=== PATIENT | female | born 1990 | race American Indian/Alaskan Native ===

== ENCOUNTER 2020-04-24 07:07 | Emergency (ER) | payer OTHER ==
[2020-04-24 07:36] VITALS: BP 107/59
--- NOTE | 2020-04-24 07:48 | Emergency Department Report ---
Chief Complaint: Urogenital-Female Stated Complaint: DISCHARGE W/BLOOD - HPI History of Present Illness: 29-year-old -J[place] female presents to the emergency room complaining of vaginal discharge that she has had for a week. Patient states that she tried [id number] Monistat because it was itching the itching has improved but now has a discharge with a foul odor. Patient denies any abdominal pain no nausea no vomiting no diarrhea. She denies any vaginal pain no dysuria. Last menstrual period was 04/18/2020. She is 4 para to 4. Last delivery was in October 2019. - Exam Vital Signs: Vital Signs 04/24/20 07:33 Temperature 98.3 F Pulse Rate 68 Respiratory 18 Rate Blood Pressure 107/59 O2 Sat by Pulse 100 Oximetry Physical Exam: Alert and oriented x3 no acute distress nontoxic in appearance Nonlabored breathing no accessory muscles use Abdomen soft nontender nondistended Ambulatory without difficulties MSE screening note: Focused history and physical exam performed. Due to findings the following was ordered: 29-year-old -J[place] female presents to the emergency room complaining of vaginal discharge that she has had for a week. Patient states that she tried [id number]-[id number] Monistat because it was itching the itching has improved but now has a discharge with a foul odor. Patient denies any abdominal pain no nausea no vomiting no diarrhea. She denies any vaginal pain no dysuria. Last menstrual period was 04/18/2020. She is 4 para to 4. Last delivery was in October 2019. ED Disposition for MSE Disposition: Z-07 MED SCREENING EXAM-LEFT Is pt being admited?: No Does the pt Need Aspirin: No Condition: Stable Additional Instructions: Recommend to follow-up urgent care [facility] or primary care provider. Referrals: [facility] [Outside] - 3-5 Days [facility] [Outside] - 3-5 Days [facility] [Outside] - 3-5 Days [facility] [Provider Group] - 3-5 Days
== END 2020-04-24 08:00 | disposition left against medical advice (07) ==
LOC: ED 07:07
DX: N89.8 Other specified noninflammatory disorders of vagina (principal); Z53.21 Procedure and treatment not carried out due to patient leaving prior to being seen by health care provider

== ENCOUNTER 2020-08-13 17:42 | Emergency (ER) | payer OTHER ==
[2020-08-13] MEDS ORDERED: SODIUM CHLORIDE 0.9% 1000 ML 1,000 ML IV ONE (19:52)
[2020-08-13] MEDS ORDERED: ONDANSETRON 4 MG/2 ML INJ IV ONE (19:52)
--- NOTE | 2020-08-13 20:00 | Emergency Department Report ---
ED General Adult HPI - General Chief complaint: Nausea/Vomiting/Diarrhea Stated complaint: VOMITING Time Seen by Provider: 08/13/20 19:51 Source: patient Mode of arrival: Ambulatory Limitations: No Limitations - History of Present Illness Initial comments: Patient 29-year-old -Welsh female who is G5 is , A0, and is currently 12 weeks who presents for abdominal pain 5/10 aching and cramping, with n/v, pt denies vaginal bleeding, there is no fever or chills pt has OBGYN at [facility] , states she arrived today via ambulance and this was closet facility. Pt is currently take promethazine and zofran prn vomiting as rx by OBGYN. pt denies other exacerbating or relieving factors. - Related Data Home Medications Medication Instructions Recorded Confirmed Last Taken Vitamin 1 tab PO DAILY 10/01/19 10/01/19 10/01/19 10:00 Previous Rx's Medication Instructions Recorded Last Taken Type cephALEXin [Keflex] 500 mg PO BID 7 Days #14 cap 08/13/20 Unknown Rx Allergies Allergy/AdvReac Type Severity Reaction Status Date / Time No Known Allergies Allergy Unverified 10/01/19 15:51 ED Review of Systems ROS: Stated complaint: VOMITING Other details as noted in HPI Constitutional: denies: chills, fever Eyes: denies: eye pain, eye discharge, vision change ENT: denies: ear pain, throat pain Respiratory: denies: cough, shortness of breath, wheezing Cardiovascular: denies: chest pain, palpitations Endocrine: no symptoms reported Gastrointestinal: abdominal pain, nausea, vomiting. denies: diarrhea, constipation Genitourinary: denies: urgency, dysuria, frequency, hematuria, discharge Musculoskeletal: denies: back pain, joint swelling, arthralgia Skin: denies: rash, lesions Neurological: denies: headache, weakness, paresthesias Psychiatric: denies: anxiety, depression Hematological/Lymphatic: denies: easy bleeding, easy bruising ED Past Medical Hx - Past Medical History Hx Hypertension: No Hx Congestive Heart Failure: No Hx Diabetes: No Hx Deep Vein Thrombosis: No Hx Renal Disease: No Hx Sickle Cell Disease: No Hx Seizures: No Hx Asthma: No Hx COPD: No Hx HIV: No - Social History Smoking Status: Never Smoker Substance Use Type: None - Medications Home Medications: Home Medications Medication Instructions Recorded Confirmed Last Taken Type Vitamin 1 tab PO DAILY 10/01/19 10/01/19 10/01/19 10:00 History cephALEXin [Keflex] 500 mg PO BID 7 Days #14 cap 08/13/20 Unknown Rx ED Physical Exam - General Limitations: No Limitations General appearance: alert, in no apparent distress - Head Head exam: Present: atraumatic, normocephalic - Eye Eye exam: Present: normal appearance, EOMI Pupils: Present: normal accommodation - ENT ENT exam: Present: mucous membranes moist - Neck Neck exam: Present: normal inspection, full ROM. Absent: tenderness - Respiratory Respiratory exam: Present: normal lung sounds bilaterally. Absent: respiratory distress, wheezes, stridor - Cardiovascular Cardiovascular Exam: Present: regular rate, normal rhythm, normal heart sounds. Absent: systolic murmur, diastolic murmur, rubs, gallop - GI/Abdominal GI/Abdominal exam: Present: soft, normal bowel sounds. Absent: distended, t enderness, guarding, rebound, rigid, bruit, hernia - Rectal Rectal exam: Present: deferred - Extremities Exam Extremities exam: Present: normal inspection, full ROM. Absent: pedal edema - Back Exam Back exam: Present: normal inspection, full ROM. Absent: CVA tenderness (R), CVA tenderness (L) - Neurological Exam Neurological exam: Present: alert, oriented X3, CN II-XII intact, normal gait - Expanded Neurological Exam Expanded Patient oriented to: Present: person, place, time Speech: Present: fluid speech Motor strength exam: RUE: 5, LUE: 5, RLE: 5, LLE: 5 Best Eye Response (Margarita): (4) open spontaneously Best Motor Response ([place]): (6) obeys commands Best Verbal Response (Margarita): (5) oriented Margarita Total: 15 - Psychiatric Psychiatric exam: Present: normal affect, normal mood - Skin Skin exam: Present: warm, dry, intact, normal color. Absent: rash ED Course Vital Signs 08/13/20 19:37 Temperature 98.2 F Pulse Rate 95 H Respiratory 17 Rate Blood Pressure 115/70 O2 Sat by Pulse 100 Oximetry ED Medical Decision Making - Lab Data Result diagrams: 08/13/20 19:59 08/13/20 19:59 Labs 08/13/20 08/13/20 08/13/20 19:59 19:59 19:59 WBC 6.9 RBC 4.37 Hgb 12.4 Hct 34.9 MCV 80 MCH 28 MCHC 36 H RDW 13.3 Plt Count 264 Lymph % (Auto) 29.0 [place] % (Auto) 6.4 Eos % (Auto) 0.9 Baso % (Auto) 0.3 Lymph # (Auto) 2.0 [place] # (Auto) 0.4 Eos # (Auto) 0.1 Baso # (Auto) 0.0 Seg Neutrophils % 63.4 Seg Neutrophils # 4.4 Sodium 134 L Potassium 3.3 L Chloride 102.2 Carbon Dioxide 22 Anion Gap 13 BUN 11 Creatinine 0.5 L Estimated GFR > 60 BUN/Creatinine Ratio 22 Glucose 86 Calcium 9.2 Total Bilirubin 0.70 AST 34 ALT 58 H Alkaline Phosphatase 62 Total Protein 6.4 Albumin 3.5 L Albumin/Globulin Ratio 1.2 HCG, Quant [id number] H Urine Color Urine Turbidity Urine pH Ur Specific [place] Urine Protein Urine Glucose (UA) Urine Ketones Urine Blood Urine Nitrite Urine Bilirubin Urine Urobilinogen Ur Leukocyte Esterase Urine WBC (Auto) Urine RBC (Auto) U Epithel Cells (Auto) Urine Bacteria (Auto) Hyaline Casts Urine Mucus Urine Yeast (Budding) 08/13/20 Unknown WBC RBC Hgb Hct MCV MCH MCHC RDW Plt Count Lymph % (Auto) [place] % (Auto) Eos % (Auto) Baso % (Auto) Lymph # (Auto) [place] # (Auto) Eos # (Auto) Baso # (Auto) Seg Neutrophils % Seg Neutrophils # Sodium Potassium Chloride Carbon Dioxide Anion Gap BUN Creatinine Estimated GFR BUN/Creatinine Ratio Glucose Calcium Total Bilirubin AST ALT Alkaline Phosphatase Total Protein Albumin Albumin/Globulin Ratio HCG, Quant Urine Color [place] Urine Turbidity Slightly-cloudy Urine pH 5.0 Ur Specific [place] 1.030 Urine Protein 30 mg/dl Urine Glucose (UA) Neg Urine Ketones 80 Urine Blood Neg Urine Nitrite Neg Urine Bilirubin Neg Urine Urobilinogen 4.0 Ur Leukocyte Esterase Neg Urine WBC (Auto) 13.0 H Urine RBC (Auto) 4.0 U Epithel Cells (Auto) 6.0 Urine Bacteria (Auto) 4+ Hyaline Casts 8 Urine Mucus 3+ Urine Yeast (Budding) 2+ - Radiology Data Radiology results: report reviewed, image reviewed US OB <= 14 weeks fetus INDICATION / CLINICAL INFORMATION: abdominal pain 12 weeks . COMPARISON: None available. FINDINGS: A single live fetus of approximately 12 weeks 2 days gestational age is seen in the uterus. [place]- rump length is 5.7 cm. heart rate is 168. The placenta is anterior. Both ovaries are unremarkable in appearance. A small fibroid is seen in the fundal region of the uterus. IMPRESSION: 1. Single live fetus of approximately 12 weeks 2 days gestational age in the uterus with heart rate of 168 2. Small fibroid in the uterine fundus Signer Name: Karsten Ramsay MD FACR Signed: 08/13/2020 8:50 PM Workstation Name: [id number] Transcribed By: MS Dictated By: Karsten Ramsay MD Electronically Authenticated By: Karsten Ramsay MD Signed Date/Time: 08/13/202049 DD/ 47 TD/TT: - Medical Decision Making No ultrasound OB single IUP 12 weeks and 2 days, heart rate 1 6 8 bpm, UA noted for leukocytes WBCs, patient defers vaginal exam to [facility] ANALYST follow-up at this time. Plan treat for UTI, patient is currently tolerating p.o. intake without nausea vomiting. Patient DC'd with prescriptions patient verbalized agreement understanding discharge plan: Patient DC'd home stable condition at this time. Critical care attestation.: If time is entered above; I have spent that time in minutes in the direct care of this critically ill patient, excluding procedure time. ED Disposition Clinical Impression: Abdominal pain during in first trimester UTI (urinary tract infection) during Qualifiers: Trimester: second trimester Qualified Code(s): O23.42 - Unspecified infection of urinary tract in , second trimester Disposition: DC-01 TO HOME OR SELFCARE Is pt being admited?: No Does the pt Need Aspirin: No Condition: Stable Instructions: and Urinary Tract Infection, Abdominal Pain During , [id number] Additional Instructions: take medications as prescribed, follow up with OBGYN in 2-3 days. Return to emergency if symptoms worsen. Prescriptions: cephALEXin [Keflex] 500 mg PO BID 7 Days #14 cap Referrals: SHILO BERGER MD [Staff Physician] - 3-5 Days Forms: Work/School Release Form(ED) Time of Disposition: :
[2020-08-13 20:13] VITALS: BP 115/70
[2020-08-13 20:23] LABS: Basophils % (Auto) 0.3 % (0.0-1.8); Eosinophils # (Auto) 0.1 K/mm3 (0.0-0.4); Eosinophils % (Auto) 0.9 % (0.0-4.3); Hematocrit 34.9 % (30.3-42.9); Hemoglobin 12.4 gm/dl (10.1-14.3); Mean Corpuscular HGB Conc 36 % (30-34); Mean Corpuscular Volume 80 fl (79-97); Monocytes # (Auto) 0.4 K/mm3 (0.0-0.8); Monocytes % (Auto) 6.4 % (0.0-7.3); Platelet Count 264 K/mm3 (140-440); Red Blood Count 4.37 M/mm3 (3.65-5.03); Red Cell Distribution Width 13.3 % (13.2-15.2)
[2020-08-13 20:32] LABS: Alanine Aminotransferase 58 units/L (7-56); Albumin 3.5 g/dL (3.9-5); Blood Urea Nitrogen 11 mg/dL (7-17); Calcium 9.2 mg/dL (8.4-10.2); Hemolysis Index 3
[2020-08-13 20:33] LABS: BUN/Creatinine Ratio 22
[2020-08-13 20:52] LABS: Bacteria,Urine 4+ /HPF (Negative); Bilirubin,Urine NEG (Negative); Blood,Urine NEG (Negative); Color,Urine Amber (Yellow); Hyaline Casts,Urine 8 /LPF; Mucus,Urine 3+ /HPF
--- NOTE | 2020-08-13 20:54 | Ultrasound Report ---
US OB <= 14 weeks fetus INDICATION / CLINICAL INFORMATION: abdominal pain 12 weeks . COMPARISON: None available. FINDINGS: A single live fetus of approximately 12 weeks 2 days gestational age is seen in the uterus. [place]-rum p length is 5.7 cm. heart rate is 168. The placenta is anterior. Both ovaries are unremarkable in appearance. A small fibroid is seen in the fundal region of the uterus. IMPRESSION: 1. Single live fetus of approximately 12 weeks 2 days gestational age in the uterus with heart rate of 168 2. Small fibroid in the uterine fundus Signer Name: Karsten Ramsay MD FACEdvin Signed: 08/13/2020 8:50 PM Workstation Name: [id number]
== END 2020-08-13 21:45 | disposition home or self-care (01) ==
LOC: ED 17:42
DX: O23.41 Unspecified infection of urinary tract in pregnancy, first trimester (principal); O26.891 Other specified pregnancy related conditions, first trimester; R10.9 Unspecified abdominal pain; Z3A.12 12 weeks gestation of pregnancy; Z79.899 Other long term (current) drug therapy
CPT/HCPCS: 36415; 76801; 80053; 81001; 84702; 85025; 87086; 96361; 96374; 99284; J2405; J7030